=== PATIENT | female | born 1945 | race Caucasian/White ===

== ENCOUNTER 2019-02-10 07:55 | Outpatient (CLI) | payer MEDICARE, OTHER ==
--- NOTE | 2019-02-10 08:09 | RAD ---
2 view chest: 02/10/2019 COMPARISON: 11/29/2015 HISTORY: Dyspnea FINDINGS: The lungs appear clear. There is cervical spine fusion hardware. There is atherosclerotic c alcification of the aortic arch. IMPRESSION: No acute findings.
== END 2019-02-10 07:56 | disposition home or self-care (01) ==
LOC: RAD 07:55
PROVIDERS: ATTEND Internal Medicine Critical Care Medicine
DX: R06.00 Dyspnea, unspecified (principal)
CPT/HCPCS: 71046

== ENCOUNTER 2019-02-19 12:34 | Outpatient (CLI) | payer MEDICARE, OTHER ==
--- NOTE | 2019-02-21 08:18 | PFT ---
PATIENT HISTORY: HEIGHT:60 in WEIGHT: 118 SMOKER: no HOW LON yrs PACKS PER DAY: 2 PRODUCTIVE COUGH: no LUNG DISEASE: no PHYSICIAN INTERPRETATION PFT data: 02/19/19 FEV1 and FVC are within normal limits. Total lung capacity is and Residual Volume are normal. DLCO is at the lower limits of normal. IMPRESSION: Normal study. Director Of Bands: NORRIS Mechanical Engineering Teacher: NORRIS GARCIA
== END 2019-02-19 12:35 | disposition home or self-care (01) ==
LOC: CP 12:34
PROVIDERS: ATTEND Internal Medicine Critical Care Medicine
DX: R06.00 Dyspnea, unspecified (principal)
CPT/HCPCS: 94060; 94727; 94729

== ENCOUNTER 2020-04-05 08:21 | Outpatient (CLI) | payer MEDICARE, OTHER ==
--- NOTE | 2020-04-05 11:05 | RAD ---
PA AND LATERAL VIEWS CHEST: Date: 04/05/2020 HISTORY: Dyspnea. COMPARISON: 02/10/2019. FINDINGS: The heart size is normal. The aorta is tortuous. The lungs are expanded without lobar consolidation, pneumothoraces, or pleural effusions. There are postop changes and metallic hardware in the cervical spine. IMPRESSION: Stable exam. No radiographic evidence of acute cardiopulmonary process. POS: AH
== END 2020-04-05 08:22 | disposition home or self-care (01) ==
LOC: BICRAD 08:21
PROVIDERS: ATTEND Internal Medicine Critical Care Medicine
DX: R06.00 Dyspnea, unspecified (principal)
CPT/HCPCS: 71046

== ENCOUNTER 2021-04-06 08:28 | Outpatient (CLI) | payer MEDICARE, OTHER | END 2021-04-06 08:29 | disposition home or self-care (01) | LOC: RAD 08:28 | PROVIDERS: ATTEND Internal Medicine Critical Care Medicine | DX: R06.00 Dyspnea, unspecified (principal) | CPT/HCPCS: 71046 ==

== ENCOUNTER 2022-04-13 09:50 | Outpatient (CLI) | payer MEDICARE, OTHER | END 2022-04-13 09:51 | disposition home or self-care (01) | LOC: RAD 09:50 | PROVIDERS: ATTEND Internal Medicine Critical Care Medicine | DX: R06.00 Dyspnea, unspecified (principal) | CPT/HCPCS: 71046 ==

== ENCOUNTER 2022-10-10 13:34 | Outpatient (CLI) | payer MEDICARE, OTHER | END 2022-10-10 13:35 | disposition home or self-care (01) | LOC: BICMAMMO 13:34 | PROVIDERS: ATTEND Internal Medicine Rheumatology | DX: M81.0 Age-related osteoporosis without current pathological fracture (principal); M85.88 Other specified disorders of bone density and structure, other site | CPT/HCPCS: 77080 ==

== ENCOUNTER 2022-12-12 08:42 | Outpatient (CLI) | payer MEDICARE, OTHER | END 2022-12-12 08:43 | disposition home or self-care (01) | LOC: RAD 08:42 | PROVIDERS: ATTEND Neurological Surgery | DX: M54.2 Cervicalgia (principal); M47.812 Spondylosis without myelopathy or radiculopathy, cervical region; M89.38 Hypertrophy of bone, other site; Z98.1 Arthrodesis status | CPT/HCPCS: 72050 ==

== ENCOUNTER 2023-04-16 08:33 | Outpatient (CLI) | payer MEDICARE, OTHER | END 2023-04-16 08:34 | disposition home or self-care (01) | LOC: RAD 08:33 | PROVIDERS: ATTEND Internal Medicine Critical Care Medicine | DX: R06.00 Dyspnea, unspecified (principal); I51.7 Cardiomegaly | CPT/HCPCS: 71046 ==

== ENCOUNTER 2024-05-26 08:53 | Outpatient (CLI) | payer MEDICARE, OTHER | END 2024-05-26 08:54 | disposition home or self-care (01) | LOC: RAD 08:53 | PROVIDERS: ATTEND Internal Medicine Critical Care Medicine | DX: R06.00 Dyspnea, unspecified (principal) | CPT/HCPCS: 71046 ==